=== PATIENT | male | born 1965 | race Caucasian/White ===

== ENCOUNTER 2020-12-10 14:08 | Inpatient (IN) ==
[2020-12-10 14:43] LABS: Basophils # 0.1 K/mcL (0.0-0.2); Basophils % 0.8 %; Eosinophils # 0.2 K/mcL (0.0-0.6); Eosinophils % 1.6 %; Hematocrit 44.9 % (37.5-50.1); Hemoglobin 15.1 g/dL (12.9-16.9); Immature Granulocytes % 3.9 % (0-4); Lymphocytes # 1.3 K/mcL (0.6-4.6); Lymphocytes % 8.9 %; Mean Corpuscular HGB Conc 33.6 g/dL (31.6-35.5); Mean Corpuscular Hemoglobin 30.3 pg (28.0-33.3); Mean Platelet Volume 9.3 fL (9.4-12.4); Monocytes # 0.6 K/mcL (0.0-1.3); Monocytes % 4.2 %; Neutrophils # 11.7 K/mcL (1.6-8.9); Platelet Count 349 K/mcL (140-400); Red Blood Count 4.99 M/mcL (4.19-5.50); Red Cell Distribution Width 11.9 % (11.5-14.5); Segmented Neutrophils % 80.6 %; White Blood Count 14.6 K/mcL (4.3-11.1)
[2020-12-10 14:56] LABS: INR 1.4; Prothrombin Time 15.4 Seconds (9.4-12.1)
[2020-12-10 14:58] LABS: Activated Partial Thrombo Time 31.3 Seconds (26.0-36.0)
[2020-12-10 15:21] LABS: BUN/Creatinine Ratio 20 (6-26); Blood Urea Nitrogen 22 mg/dL (6-20); Calcium 8.9 mg/dL (8.6-10.3); Carbon Dioxide 22 mEq/L (23-29); Chloride 99 mEq/L (98-107); Glucose 170 mg/dL (70-105); Osmolality,Calculated 283 (280-300); Potassium 3.6 mEq/L (3.5-5.1); Sodium 133 mEq/L (136-145); Troponin I 0.05 ng/mL (< 0.04); eGFR For African Americans > 60 (> 60); eGFR For Non-African Americans > 60 (> 60)
[2020-12-10] MEDS ORDERED: Isovue-370 500 ML BOTTLE IVP ONE (16:07)
[2020-12-10] MEDS ORDERED: Aspirin 325 MG TABLET PO ONE (16:35)
[2020-12-10] MEDS ORDERED: Acetaminophen 325 MG TABLET PO PRN (17:14)
[2020-12-10] MEDS ORDERED: Ondansetron 4 MG/2 ML VIAL IVP PRN (17:17)
[2020-12-10] MEDS ORDERED: Naloxone 0.4 MG/ML INJ IVP PRN (17:17)
[2020-12-10 20:03] LABS: Alanine Aminotransferase 64 Units/L (7-52); Albumin/Globulin Ratio 0.8 (1.1-2.2); Alkaline Phosphatase 64 Units/L (34-104); Aspartate Amino Transferase 52 Units/L (13-39); Bilirubin,Direct 0.2 mg/dL (0.0-0.2); Bilirubin,Indirect 0.4 mg/dL (0.0-1.0); Bilirubin,Total 0.6 mg/dL (0.3-1.0); C-Reactive Protein > 300 mg/L (Less than 10); Ferritin 646 ng/mL (20-250); Globulin 3.9 g/dL (2.4-3.5); Lactate Dehydrogenase 272 Units/L (140-271); Total Protein 6.9 g/dL (6.4-8.9)
[2020-12-10] MEDS: Ipratropium 1 PUFF INHALER IH SCH ×2 (20:29→23:54)
[2020-12-11 01:27] LABS: Basophils % 0.2 %; Hematocrit 47.1 % (37.5-50.1); Hemoglobin 15.3 g/dL (12.9-16.9); Immature Granulocytes % 4.8 % (0-4); Lymphocytes # 0.8 K/mcL (0.6-4.6); Lymphocytes % 9.8 %; Mean Corpuscular HGB Conc 32.5 g/dL (31.6-35.5); Mean Corpuscular Hemoglobin 29.4 pg (28.0-33.3); Mean Corpuscular Volume 90.6 fL (83.0-100.0); Mean Platelet Volume 9.4 fL (9.4-12.4); Monocytes # 0.2 K/mcL (0.0-1.3); Monocytes % 2.3 %; Neutrophils # 7.1 K/mcL (1.6-8.9); Platelet Count 379 K/mcL (140-400); Red Cell Distribution Width 11.8 % (11.5-14.5); Segmented Neutrophils % 82.9 %; White Blood Count 8.6 K/mcL (4.3-11.1)
[2020-12-11 01:48] LABS: Alanine Aminotransferase 71 Units/L (7-52); Albumin 3.4 g/dL (3.5-5.7); Albumin/Globulin Ratio 0.8 (1.1-2.2); Alkaline Phosphatase 68 Units/L (34-104); Aspartate Amino Transferase 53 Units/L (13-39); BUN/Creatinine Ratio 21 (6-26); Bilirubin,Total 0.4 mg/dL (0.3-1.0); Blood Urea Nitrogen 24 mg/dL (6-20); Calcium 9.5 mg/dL (8.6-10.3); Carbon Dioxide 26 mEq/L (23-29); Chloride 101 mEq/L (98-107); Globulin 4.1 g/dL (2.4-3.5); Glucose 158 mg/dL (70-105); Osmolality,Calculated 293 (280-300); Potassium 4.2 mEq/L (3.5-5.1); Sodium 138 mEq/L (136-145); Total Protein 7.5 g/dL (6.4-8.9); eGFR For African Americans > 60 (> 60); eGFR For Non-African Americans > 60 (> 60)
[2020-12-11 03:14] LABS: Platelet Estimate Normal (Normal); Reactive Lymphocytes Present (Not Present)
[2020-12-11] MEDS: Ipratropium 1 PUFF INHALER IH SCH ×5 (04:22→20:43)
[2020-12-11] MEDS: *HR* Enoxaparin 40 MG/0.4 ML SYRINGE SQ SCH (06:07)
[2020-12-11] MEDS ORDERED: hydroCHLOROthiazide 25 MG TABLET PO SCH (09:00)
[2020-12-11] MEDS: Dexamethasone Sodium Phos/PF 10 MG/ML VIAL IVP SCH (09:26)
[2020-12-11] MEDS: hydrOXYzine pamoate 25 MG CAPSULE PO PRN (15:01)
[2020-12-11] MEDS: Benzonatate 100 MG CAPSULE PO SCH (18:03)
[2020-12-12] MEDS: Ipratropium 1 PUFF INHALER IH SCH ×7 (00:13→23:56)
[2020-12-12] MEDS: Benzonatate 100 MG CAPSULE PO SCH ×5 (00:39→22:04)
[2020-12-12] MEDS: hydrOXYzine pamoate 25 MG CAPSULE PO PRN ×3 (00:40→22:05)
[2020-12-12 04:06] LABS: Basophils # 0.1 K/mcL (0.0-0.2); Basophils % 0.3 %; Hematocrit 42.1 % (37.5-50.1); Hemoglobin 14.2 g/dL (12.9-16.9); Immature Granulocytes % 2.3 % (0-4); Lymphocytes # 1.7 K/mcL (0.6-4.6); Lymphocytes % 7.5 %; Mean Corpuscular HGB Conc 33.7 g/dL (31.6-35.5); Mean Corpuscular Hemoglobin 30.3 pg (28.0-33.3); Mean Platelet Volume 9.6 fL (9.4-12.4); Monocytes % 3.7 %; Neutrophils # 19.7 K/mcL (1.6-8.9); Platelet Count 451 K/mcL (140-400); Red Blood Count 4.68 M/mcL (4.19-5.50); Red Cell Distribution Width 11.9 % (11.5-14.5); Segmented Neutrophils % 86.2 %
[2020-12-12 04:07] LABS: Monocytes # 0.9 K/mcL (0.0-1.3); White Blood Count 22.9 K/mcL (4.3-11.1)
[2020-12-12 04:26] LABS: BUN/Creatinine Ratio 33 (6-26); Blood Urea Nitrogen 33 mg/dL (6-20); C-Reactive Protein 113 mg/L (Less than 10); Calcium 9.1 mg/dL (8.6-10.3); Carbon Dioxide 24 mEq/L (23-29); Chloride 105 mEq/L (98-107); Glucose 142 mg/dL (70-105); Lactate Dehydrogenase 240 Units/L (140-271); Magnesium 2.1 mg/dL (1.6-2.6); Osmolality,Calculated 296 (280-300); Potassium 4.1 mEq/L (3.5-5.1); Sodium 138 mEq/L (136-145); eGFR For African Americans > 60 (> 60); eGFR For Non-African Americans > 60 (> 60)
[2020-12-12 04:43] LABS: Ferritin 932 ng/mL (20-250)
[2020-12-12] MEDS: *HR* Enoxaparin 40 MG/0.4 ML SYRINGE SQ SCH (06:24)
[2020-12-12] MEDS: Dexamethasone Sodium Phos/PF 10 MG/ML VIAL IVP SCH (09:36)
[2020-12-12] MEDS: hydroCHLOROthiazide 25 MG TABLET PO SCH (12:01)
[2020-12-12] MEDS: Valsartan 160 MG TABLET PO SCH (12:01)
[2020-12-13] MEDS: Ipratropium 1 PUFF INHALER IH SCH ×6 (03:46→23:22)
[2020-12-13] MEDS: *HR* Enoxaparin 40 MG/0.4 ML SYRINGE SQ SCH (06:56)
[2020-12-13] MEDS: Benzonatate 100 MG CAPSULE PO SCH ×3 (07:55→19:56)
[2020-12-13] MEDS: Dexamethasone Sodium Phos/PF 10 MG/ML VIAL IVP SCH (07:56)
[2020-12-13] MEDS: Valsartan 160 MG TABLET PO SCH (07:56)
[2020-12-13] MEDS: hydroCHLOROthiazide 25 MG TABLET PO SCH (07:56)
[2020-12-13] MEDS: hydrOXYzine pamoate 25 MG CAPSULE PO PRN ×3 (08:33→22:46)
[2020-12-13 08:47] LABS: Basophils # 0.1 K/mcL (0.0-0.2); Basophils % 0.4 %; Hematocrit 42.8 % (37.5-50.1); Hemoglobin 14.1 g/dL (12.9-16.9); Immature Granulocytes % 3.9 % (0-4); Lymphocytes # 2.2 K/mcL (0.6-4.6); Lymphocytes % 13.8 %; Mean Corpuscular HGB Conc 32.9 g/dL (31.6-35.5); Mean Corpuscular Hemoglobin 30.1 pg (28.0-33.3); Mean Corpuscular Volume 91.5 fL (83.0-100.0); Mean Platelet Volume 9.5 fL (9.4-12.4); Monocytes # 0.8 K/mcL (0.0-1.3); Monocytes % 4.9 %; Neutrophils # 12.1 K/mcL (1.6-8.9); Platelet Count 468 K/mcL (140-400); Red Blood Count 4.68 M/mcL (4.19-5.50); Red Cell Distribution Width 11.9 % (11.5-14.5); White Blood Count 15.7 K/mcL (4.3-11.1)
[2020-12-13 09:17] LABS: BUN/Creatinine Ratio 32 (6-26); Blood Urea Nitrogen 30 mg/dL (6-20); C-Reactive Protein 38 mg/L (Less than 10); Calcium 8.9 mg/dL (8.6-10.3); Carbon Dioxide 23 mEq/L (23-29); Chloride 109 mEq/L (98-107); Glucose 143 mg/dL (70-105); Lactate Dehydrogenase 179 Units/L (140-271); Osmolality,Calculated 301 (280-300); Sodium 141 mEq/L (136-145); eGFR For African Americans > 60 (> 60); eGFR For Non-African Americans > 60 (> 60)
[2020-12-13 09:23] LABS: Ferritin 516 ng/mL (20-250)
[2020-12-14 01:43] LABS: Hematocrit 43.2 % (37.5-50.1); Hemoglobin 14.6 g/dL (12.9-16.9); Mean Corpuscular HGB Conc 33.8 g/dL (31.6-35.5); Mean Corpuscular Hemoglobin 30.7 pg (28.0-33.3); Mean Corpuscular Volume 90.8 fL (83.0-100.0); Mean Platelet Volume 9.3 fL (9.4-12.4); Platelet Count 508 K/mcL (140-400); Red Blood Count 4.76 M/mcL (4.19-5.50); Red Cell Distribution Width 11.7 % (11.5-14.5); White Blood Count 14.5 K/mcL (4.3-11.1)
[2020-12-14 02:02] LABS: BUN/Creatinine Ratio 25 (6-26); Blood Urea Nitrogen 28 mg/dL (6-20); C-Reactive Protein 24 mg/L (Less than 10); Calcium 9.2 mg/dL (8.6-10.3); Carbon Dioxide 24 mEq/L (23-29); Chloride 105 mEq/L (98-107); Glucose 122 mg/dL (70-105); Lactate Dehydrogenase 180 Units/L (140-271); Osmolality,Calculated 295 (280-300); Potassium 4.3 mEq/L (3.5-5.1); Sodium 139 mEq/L (136-145); eGFR For African Americans > 60 (> 60); eGFR For Non-African Americans > 60 (> 60)
[2020-12-14 02:11] LABS: Lymphocytes # 3.2 K/mcL (0.6-4.6); Monocytes # 1.2 K/mcL (0.0-1.3); Neutrophils # 9.9 K/mcL (1.6-8.9); Platelet Estimate Normal (Normal); Reactive Lymphocytes Present (Not Present)
[2020-12-14 02:19] LABS: Ferritin 504 ng/mL (20-250)
[2020-12-14] MEDS: Ipratropium 1 PUFF INHALER IH SCH ×4 (03:42→16:32)
[2020-12-14] MEDS: *HR* Enoxaparin 40 MG/0.4 ML SYRINGE SQ SCH (05:16)
[2020-12-14] MEDS ORDERED: Dexamethasone Sodium Phos/PF 10 MG/ML VIAL IVP SCH (09:00)
[2020-12-14] MEDS: Valsartan 160 MG TABLET PO SCH (10:27)
[2020-12-14] MEDS: hydroCHLOROthiazide 25 MG TABLET PO SCH (10:27)
[2020-12-14] MEDS: Benzonatate 100 MG CAPSULE PO SCH ×2 (10:27→16:40)
[2020-12-14 16:03] VITALS: BP 155/86; PULSE 86; TEMP 98.5
[2020-12-14 17:02] VITALS: O2SAT 93
== END 2020-12-14 18:29 | disposition home or self-care (01) | DRG 177 ==
LOC: 2NENU 14:08 → EMEROOARM 14:08 → SUATTDRO 17:17 → 2NENU 18:12
PROVIDERS: ADMIT Family Medicine; ATTEND Hospitalist